=== PATIENT | male | born 1940 | race Caucasian/White ===

== ENCOUNTER 2016-09-07 12:25 | Emergency (ER) | payer OTHER ==
[~2016-09-07] VITALS: Ht 175.3 cm; Wt 94.2 kg
[~2016-09-07 12:25] MED LIST: ALEVE220 MG PO; ALPHA-LIPOIC A300 MG PO; AMOXICILLIN; ASPIR-LOW81 MG PO; CALCIUM 600 +1 EA16 PO; CARDIZEM CD,CA120 MG PO; CEFTIN250 MG PO; FLONASE16 G1 BOTH NARES; LOTENSIN40 MG PO; OMEGA-31000 M1 PO; PRAVACHOL20 MG PO; Pradaxa PO; TOPROL XL50 MG PO; Toprol XL PO; Tylenol Regular Stre PO; VITAMIN B12 100MCG PO; VITAMIN D31000 UNIT PO
[2016-09-07 13:19] LABS: HEMATOCRIT 44.5 % (38.0-50.0); MCH 31.6 PG (29.0-34.0); MCHC 34.6 G/DL (30.0-36.0); MCV 91.2 FL (86-99); MEAN PLAT.VOLUME 9.5 uM^3 (9.0-12.4); PLATELET COUNT 296 K/uL (156-360); RBC DIS.WIDTH-CV 12.5 % (11.8-14.6); RBC DIS.WIDTH-SD 41.2 % (39-53); RED BLOOD COUNT 4.88 M/uL (4.00-5.50); WHITE BLOOD COUNT 7.7 K/uL (4.1-10.2)
[2016-09-07 13:24] LABS: CHLORIDE 105 mEq/L (99-109); POTASSIUM 4.5 mEq/L (3.7-5.4); SODIUM 141 mEq/L (136-147)
[2016-09-07 13:26] LABS: D-DIMER ELISA 1.09 mg/L FEU (< 0.57); GLUCOSE 117 mg/dL (70-99)
[2016-09-07 13:27] LABS: ANION GAP 13 MEQ/L (2-14)
[2016-09-07 13:30] LABS: GFR ESTIMATE (CALCULATED) > 59 mL/min/
[2016-09-07 13:31] LABS: UREA NITROGEN (BUN) 8 mg/dL (9-23)
[2016-09-07 13:37] LABS: TROP-I INTERPRETATION NEGATIVE; TROPONIN-I < 0.01 ng/mL (0.0-0.30)
[2016-09-07 16:50] VITALS: BP 139/87
== END 2016-09-07 16:53 | disposition left against medical advice (07) ==
LOC: EME → EDBD 12:25 → EME 12:25
PROVIDERS: Emergency Medicine
DX: R55 Syncope and collapse (principal); I48.91 Unspecified atrial fibrillation; Z95.5 Presence of coronary angioplasty implant and graft; Z88.1 Allergy status to other antibiotic agents; Z88.6 Allergy status to analgesic agent
CPT/HCPCS: 71020; 71275; 80048; 84484; 85027; 85379; 93005; 99281; 99285; J7030